=== PATIENT | female | born 1990 | race African-American/Black ===

== ENCOUNTER 2017-07-30 13:09 | Emergency (ER) | payer OTHER ==
[2017-07-30] MEDS ORDERED: LIDOCAINE 1% INJ-PF (10 MG/ML) 30 ML SDV INJ ONE (13:38)
--- NOTE | 2017-07-30 13:46 | ER Document Report ---
HPI - HPI Pain Level: 4 Notes: Patient is a 27-year-old female who presents to the ED complaining of an abscess to her left axilla 1-1/2 weeks. Patient states that she has had an abscess in this area before that needed an incision and drainage. Patient has not noticed any purulent discharge or red streaks. She is eating and drinking without difficulties. She is urinating normally and having normal bowel movements. No other significant past medical history. Denies any history of MRSA. Denies any smoking or IV drug use. No other concerns or complaints at this time. Denies any headache, fever, URI, sore throat, chest pain, palpitations, syncope, cough, shortness of breath, wheeze, dyspnea, abdominal pain, nausea/vomiting/diarrhea, urinary retention, dysuria, hematuria, numbness/ tingling, muscle paralysis/weakness, or rash. - ROS Systems Reviewed and Negative: Yes All other systems reviewed and negative - CONSTITUTIONAL Constitutional: DENIES: Fever, Chills - REPRODUCTIVE LMP: Current Reproductive: DENIES: : Past Medical History - Social History Smoking Status: Never Smoker Chew tobacco use (# tins/day): No Frequency of alcohol use: None Drug Abuse: None Family History: Reviewed & Not Pertinent Patient has suicidal ideation: No Patient has homicidal ideation: No Renal/ Medical History: Denies: Hx Peritoneal Dialysis Vertical Provider Document - CONSTITUTIONAL Agree With Documented VS: Yes Notes: PHYSICAL EXAMINATION: GENERAL: Well-appearing, well-nourished and in no acute distress. LUNGS: Breath sounds clear to auscultation bilaterally and equal. No wheezes rales or rhonchi. HEART: Regular rate and rhythm without murmurs, rubs, gallops. Musculoskeletal: FROM to passive/active. Strength 5+/5. Extremities: No cyanosis, clubbing, or edema b/l. Peripheral pulses 2+. Capillary refill less than 3 seconds. NEUROLOGICAL: Cranial nerves grossly intact. Normal speech, normal gait. Normal sensory, motor exams PSYCH: Normal mood, normal affect. SKIN: Lt axilla: + abscess with fluctuant fluid noted. + tenderness and mild surrounding induration. + mild erythema. No discharge or streaks. - INFECTION CONTROL TRAVEL OUTSIDE OF THE [place] IN LAST 30 DAYS: No Course - Re-evaluation Re-evalutation: 07/30/17 14:50 Patient is an afebrile, well-hydrated, 27-year-old female who presents to the ED with an abscess to her left axilla. Vitals are acceptable. PE is otherwise unremarkable. Incision and drainage was performed successfully without any complications. Packing was placed, wound dressing placed, and wound instructions reviewed. Wound culture was obtained. No other labs or imaging warranted at this time based on H&P. Patient has no significant tachycardia, tachypnea, or hypoxia. She is tolerating p.o. without any difficulties. Low suspicion for any sepsis or other systemic emergent condition at this time. I will send her home with a prescription for Keflex and Bactrim. Recheck with your PCM in 2-3 days. Return to the ED with any worsening/concerning symptoms otherwise as reviewed discharge. Patient is in agreement. - Vital Signs Vital signs: Temp Pulse Resp BP Pulse Ox 99.5 F 111 H 14 115/81 100 07/30/17 13:13 07/30/17 13:13 07/30/17 13:13 07/30/17 13:13 07/30/17 13:13 Procedures - Incision and Drainage Left Arm Time completed: 14:50 - pt tolerated proc well, no complications, wound cx obtained Type: Simple Anesthetic type: 1% Lidocaine mL's of anesthetic: 8 Blade size: 11 I&D procedure: Iodoform packing placed, Sterile dressing applied, Other - chlorhexadine/saline Incision Method: Incision made by scalpel Amount/type of drainage: moderate purulent Discharge - Discharge Clinical Impression: Abscess Condition: Stable Disposition: HOME, SELF-CARE Instructions: Abscess ([facility]), Cephalexin ([facility]), Post Incision and Drainage, Trimethoprim-Sulfa ([facility]) Additional Instructions: Do not shower or bathe for 24 hours. After 24 hours she may shower but no submersion of the wound under water. Keep the original dressing on the wound for 24 hours unless the drainage soaks through. Change the dressing daily thereafter and use a small amount of triple antibiotic ointment over the open wound. Return to the ED and/or your PCM in 2-3 days for recheck and continue direction for wound packing. Monitor for any signs of worsening pain or redness , streaks, and/or fever. Return to the ED if noticing any of the above symptoms or as needed. Take medications as directed. Prescriptions: Cephalexin Monohydrate [Keflex 500 mg Capsule] 500 mg PO BID #20 capsule Sulfamethoxazole/Trimethoprim [Bactrim Ds Tablet] 1 each PO BID #20 tablet Referrals: ALEXX ROB MD [ACTIVE STAFF] - Follow up as needed
[2017-07-30] MEDS ORDERED: HYDROCODONE/ACETAMINOPHEN 5-325 MG (6 TAB/ER DISP) PO PRN (14:55)
[2017-07-30 15:33] VITALS: BP 126/88
== END 2017-07-30 15:30 | disposition home or self-care (01) ==
LOC: ER 13:09
PROC: 0H9CXZZ Drainage of Left Upper Arm Skin, External Approach (ICD-10-PCS; principal; 2017-07-30)
DX: L02.412 Cutaneous abscess of left axilla (principal)
CPT/HCPCS: 99282